=== PATIENT | female | born 1980 | race Caucasian/White ===

== ENCOUNTER → 2016-08-17 | Outpatient (CLI) | payer BC, MEDICAID | LOC: SUN.DIA 08:22 | DX: O24.419 Gestational diabetes mellitus in pregnancy, unspecified control (principal); Z3A.19 19 weeks gestation of pregnancy; O16.2 Unspecified maternal hypertension, second trimester; O99.282 Endocrine, nutritional and metabolic diseases complicating pregnancy, second trimester; E78.5 Hyperlipidemia, unspecified; Z71.3 Dietary counseling and surveillance | CPT/HCPCS: G0108 ==

== ENCOUNTER → 2016-09-07 | Outpatient (CLI) | payer BC, MEDICAID | LOC: SUN.DIA 08-21 08:32 | DX: O24.419 Gestational diabetes mellitus in pregnancy, unspecified control (principal); O16.2 Unspecified maternal hypertension, second trimester; O99.282 Endocrine, nutritional and metabolic diseases complicating pregnancy, second trimester; Z3A.22 22 weeks gestation of pregnancy; Z71.3 Dietary counseling and surveillance | CPT/HCPCS: G0108 ==

== ENCOUNTER → 2017-01-23 | Outpatient (CLI) | payer BC, MEDICAID | LOC: SUN.DIA 08:30 | DX: O24.414 Gestational diabetes mellitus in pregnancy, insulin controlled (principal); Z3A.38 38 weeks gestation of pregnancy; Z71.3 Dietary counseling and surveillance | CPT/HCPCS: G0108 ==

== ENCOUNTER → 2017-11-08 | Outpatient (CLI) | payer OTHER | LOC: COL.RAD 08:15 | DX: R74.0 Nonspecific elevation of levels of transaminase and lactic acid dehydrogenase [LDH] (principal) ==